=== PATIENT | male | born 1985 | race Caucasian/White ===

== ENCOUNTER 2018-02-15 12:32 | Emergency (ER) | payer OTHER ==
[~2018-02-15] VITALS: Ht 175.3 cm; Wt 87.0 kg
[~2018-02-15 12:32] MED LIST: Z.0.NO CURRENT MEDS
[2018-02-15] MEDS ORDERED: IOHEXOL 350 MG/ML 10 ML VIAL (for RAD DIAG) IVCONTRAST ONE (12:33)
[2018-02-15 12:48] VITALS: BP 129/79; PULSE 92; RESP 16; O2SAT 97
[2018-02-15] MEDS ORDERED: DIVA500T3 PO (12:48)
[2018-02-15] MEDS ORDERED: VENL75TA PO (12:48)
[2018-02-15] MEDS ORDERED: CYCL10TA PO (12:48)
[2018-02-15] MEDS ORDERED: GABA300C5 PO (12:48)
[2018-02-15] MEDS ORDERED: IBUP-232 PO (12:48)
[2018-02-15] MEDS ORDERED: TRAZ50TA12 PO (12:48)
[2018-02-15] MEDS ORDERED: SODIUM CHLOR 0.9% 1000 ML INJ 1,000 ML IV SCH (12:54)
[2018-02-15] MEDS ORDERED: SODIUM CHLORIDE 0.9% FLUSH 10 ML FLUSH IVF PRN (13:00)
[2018-02-15] MEDS ORDERED: MORPHINE SULFATE 4 MG/ML INJ IV PUSH ONE (13:00)
[2018-02-15 13:03] VITALS: RESP 18; O2SAT 97
--- NOTE | 2018-02-15 13:13 | PD ---
HPI Chief Complaint: Fall Time Seen by Provider: 12:43 Travel History International Travel<30 days: No Contact w/Intl Traveler<30days: No Traveled to known affect area: No History of Present Illness HPI Patient is a 32-year-old male presenting to the emergency department for evaluation of left-sided weakness, headache, dizziness after sustaining a mechanical fall on Tuesday. Patient states he felt lightheaded and dizzy Tuesday while he was attempting to descend a staircase, he subsequently fell down 13 steps. He had positive loss of consciousness, when he regained consciousness he got himself up and felt okay so he did not seek medical attention. He states over the last 3 days he has had increasing weakness on his left leg. He also reports a headache, dizziness and nausea. Patient reports that he has chronic back pain, his back pain is consistent with what he has had in the past. He denies any bladder or bowel incontinence, no saddle paresthesia. He currently reports his pain is a 7 out of 10, constant, aching. Patient states he been seeing a neurologist through the [place] for possible seizures. He has not had a formal EEG done, he is still awaiting further testing. He had been on gabapentin for this, he was just changed to Depakote which she has not started taking. He denies any chest pain or shortness of breath prior to the syncopal episode. Patient states his been taking 800 mg ibuprofen for the pain. PFSH Past Medical History Anxiety: Yes Depression: Yes Neurologic: Yes Seizures: Yes Tetanus Vaccination: Unknown Past Surgical History Abdominal Surgery: Yes (kidney) Social History Alcohol Use: No Tobacco Use: Yes Substance Use: No Allergies-Medications (Allergen,Severity, Reaction): Coded Allergies: No Known Allergies (Verified Adverse Reaction, Unknown, 02/15/18) Reported Meds & Prescriptions Reported Meds & Active Scripts Active Reported Effexor (Venlafaxine HCl) 75 Mg Tab 75 Mg PO Q8H Trazodone (Trazodone HCl) 50 Mg Tab 50 Mg PO HS Ibuprofen 600 Mg Tab 600 Mg PO Q8HR PRN Gabapentin 300 Mg Cap 300 Mg PO TID Divalproex ER (Divalproex Sodium) 500 Mg Tab 500 Mg PO DAILY Flexeril (Cyclobenzaprine HCl) 10 Mg Tab 10 Mg PO DAILY No Current Meds (Miscellaneous Medication) Misc Review of Systems Except as stated in HPI: all other systems reviewed are Neg HENT: Positive: Headaches, Lightheadedness Cardiovascular: No: Chest Pain or Discomfort Respiratory: No: Shortness of Breath Gastrointestinal: Positive: Nausea, No: Abdominal Pain Musculoskeletal: Positive: Myalgias Neurologic: Positive: Weakness, Dizziness, Focal Abnormalities, Headache, Sensory Disturbance, No: Change in Mentation, Slurred Speech Physical Exam Narrative GENERAL: Well-developed, well-nourished, alert male. Presenting in no acute distress. SKIN: Warm and dry. Abrasions to forehead and left upper back HEAD: Atraumatic. Normocephalic. EYES: Pupils equal and round. No scleral icterus. No injection or drainage. Extraocular movements are intact ENT: No nasal bleeding or discharge. Mucous membranes pink and moist. NECK: Trachea midline. No JVD. No spinal tenderness or step-off noted. CARDIOVASCULAR: Regular rate and rhythm. RESPIRATORY: No accessory muscle use. Clear to auscultation. Breath sounds equal bilaterally. GASTROINTESTINAL: Abdomen soft, non-tender, nondistended. Hepatic and splenic margins not palpable. MUSCULOSKELETAL: Extremities without clubbing, cyanosis, or edema. No obvious deformities. Spinal tenderness to the upper lumbar region. NEUROLOGICAL: Awake and alert. No obvious cranial nerve deficits. Motor grossly within normal limits. 4/5 muscle strength in the left arms and leg. 5 out of 5 in the right arm and leg. Normal speech. PSYCHIATRIC: Appropriate mood and affect; insight and judgment normal. Data Data Last Documented VS Vital Signs Date Time Temp Pulse Resp B/P (MAP) Pulse Ox O2 Delivery O2 Flow Rate FiO2 02/15/18 14:36 16 02/15/18 14:08 89 98 Room Air 02/15/18 14:07 98.1 121/76 (91) Orders Orders Complete Blood Count With Diff (02/15/18 12:54) Prothrombin Time / Inr (Pt) (02/15/18 12:54) Act Partial Throm Time (Ptt) (02/15/18 12:54) Ct Brain W/O Iv Contrast(Rout) (02/15/18 12:54) Ct Cerv Spine W/O Contrast (02/15/18 12:54) Ct Abd/Pel W Iv Contrast(Rout) (02/15/18 12:54) Ct Thorax/ Chest W Iv Contrast (02/15/18 12:54) Ct Thor Spine W Iv Contrast (02/15/18 12:54) Ct Lumb Spine W Iv Contrast (02/15/18 12:54) Iv Access Insert/Monitor (02/15/18 12:54) Ecg Monitoring (02/15/18 12:54) Oximetry (02/15/18 12:54) Oxygen Administration (02/15/18 12:54) Morphine Inj (Morphine Inj) (02/15/18 13:00) Sodium Chlor 0.9% 1000 Ml Inj (Ns 1000 M (02/15/18 12:54) Sodium Chloride 0.9% Flush (Ns Flush) (02/15/18 13:00) Comprehensive Metabolic Panel (02/15/18 12:54) Creatine Kinase (Cpk) (02/15/18 12:54) Acetaminophen 1000 Mg/100 Ml (Ofirmev 10 (02/15/18 14:00) Iohexol 350 Inj (Omnipaque 350 Inj) (02/15/18 12:33) Urinalysis - C+S If Indicated (02/15/18 15:19) Ibuprofen (Motrin) (02/15/18 16:15) Labs Laboratory Tests Test 02/15/18 13:01 White Blood Count 11.9 TH/MM3 Red Blood Count 6.13 MIL/MM3 Hemoglobin 17.4 GM/DL Hematocrit 51.8 % Mean Corpuscular Volume 84.6 FL Mean Corpuscular Hemoglobin 28.4 PG Mean Corpuscular Hemoglobin Concent 33.6 % Red Cell Distribution Width 14.1 % Platelet Count 263 TH/MM3 Mean Platelet Volume 7.9 FL Neutrophils (%) (Auto) 62.5 % Lymphocytes (%) (Auto) 25.5 % Monocytes (%) (Auto) 10.7 % Eosinophils (%) (Auto) 0.9 % Basophils (%) (Auto) 0.4 % Neutrophils # (Auto) 7.4 TH/MM3 Lymphocytes # (Auto) 3.0 TH/MM3 Monocytes # (Auto) 1.3 TH/MM3 Eosinophils # (Auto) 0.1 TH/MM3 Basophils # (Auto) 0.0 TH/MM3 CBC Comment DIFF FINAL Differential Comment Prothrombin Time 11.3 SEC Prothromb Time International Ratio 1.1 RATIO Activated Partial Thromboplast Time 32.5 SEC Blood Urea Nitrogen 11 MG/DL Creatinine 1.03 MG/DL Random Glucose 79 MG/DL Total Protein 7.9 GM/DL Albumin 3.9 GM/DL Calcium Level 9.2 MG/DL Alkaline Phosphatase 80 U/L Aspartate Amino Transf (AST/SGOT) 18 U/L Alanine Aminotransferase (ALT/SGPT) 27 U/L Total Bilirubin 0.3 MG/DL Sodium Level 138 MEQ/L Potassium Level 4.3 MEQ/L Chloride Level 102 MEQ/L Carbon Dioxide Level 28.5 MEQ/L Anion Gap 8 MEQ/L Estimat Glomerular Filtration Rate 85 ML/MIN Total Creatine Kinase 182 U/L [facility] Medical Decision Making Medical Screen Exam Complete: Yes Emergency Medical Condition: Yes Interpretation(s) Last Impressions Thoracic Spine CT 02/15/18 1254 Signed Impressions: CONCLUSION: Essentially unremarkable study. Lumbar Spine CT 02/15/18 1254 Signed Impressions: CONCLUSION: Slight asymmetrical bulging disc left L5-S1 with mild abutting of the exiting nerve roots. Head CT 02/15/18 1254 Signed Impressions: CONCLUSION: No acute intracranial abnormality is identified. Chest CT 02/15/18 1254 Signed Impressions: CONCLUSION: Unremarkable study except for slight atelectasis and/or infiltrate within lingula. Cervical Spine CT 02/15/18 1254 Signed Impressions: CONCLUSION: No acute bony injury in the cervical spine. Abdomen/Pelvis CT 02/15/18 1254 Signed Impressions: CONCLUSION: Slight hydronephrosis and right kidney with prominence of the right renal pelvis may be chronic partial UPJ obstruction and otherwise unremarkable . Laboratory Tests Test 02/15/18 13:01 White Blood Count 11.9 TH/MM3 Red Blood Count 6.13 MIL/MM3 Hemoglobin 17.4 GM/DL Hematocrit 51.8 % Mean Corpuscular Volume 84.6 FL Mean Corpuscular Hemoglobin 28.4 PG Mean Corpuscular Hemoglobin Concent 33.6 % Red Cell Distribution Width 14.1 % Platelet Count 263 TH/MM3 Mean Platelet Volume 7.9 FL Neutrophils (%) (Auto) 62.5 % Lymphocytes (%) (Auto) 25.5 % Monocytes (%) (Auto) 10.7 % Eosinophils (%) (Auto) 0.9 % Basophils (%) (Auto) 0.4 % Neutrophils # (Auto) 7.4 TH/MM3 Lymphocytes # (Auto) 3.0 TH/MM3 Monocytes # (Auto) 1.3 TH/MM3 Eosinophils # (Auto) 0.1 TH/MM3 Basophils # (Auto) 0.0 TH/MM3 CBC Comment DIFF FINAL Differential Comment Prothrombin Time 11.3 SEC Prothromb Time International Ratio 1.1 RATIO Activated Partial Thromboplast Time 32.5 SEC Blood Urea Nitrogen 11 MG/DL Creatinine 1.03 MG/DL Random Glucose 79 MG/DL Total Protein 7.9 GM/DL Albumin 3.9 GM/DL Calcium Level 9.2 MG/DL Alkaline Phosphatase 80 U/L Aspartate Amino Transf (AST/SGOT) 18 U/L Alanine Aminotransferase (ALT/SGPT) 27 U/L Total Bilirubin 0.3 MG/DL Sodium Level 138 MEQ/L Potassium Level 4.3 MEQ/L Chloride Level 102 MEQ/L Carbon Dioxide Level 28.5 MEQ/L Anion Gap 8 MEQ/L Estimat Glomerular Filtration Rate 85 ML/MIN Total Creatine Kinase 182 U/L Vital Signs Date Time Temp Pulse Resp B/P (MAP) Pulse Ox O2 Delivery O2 Flow Rate FiO2 02/15/18 13:03 18 97 Room Air 02/15/18 12:48 92 16 129/79 (96) 97 Room Air Differential Diagnosis Fracture versus contusion versus hemorrhage versus cardiac arrhythmia versus seizure versus other Narrative Course Patient is a 32-year-old male presenting to the emergency department for evaluation after a fall likely secondary to a syncopal episode on Tuesday. On exam patient has left sided weakness. Patient's vital signs are stable, labs and imaging ordered and pending. Labs reviewed, CBC and chemistry with no acute findings. Patient was given morphine for pain initially, this alleviated his pain, he then complained of a headache, IV acetaminophen has been ordered. CT scan the abdomen and pelvis shows slight hydronephrosis and right [place] kidney with prominence of the right renal pelvis may be chronic partial UPJ obstruction patient has normal BUN and creatinine. CT scan of the cervical spine shows no acute abnormality. CT of the chest is unremarkable except for slight atelectasis and/or infiltrate within the lingula. Head CT shows no acute intracranial abnormality. CT scan the lumbar spine shows slight asymmetrical bulging disc left L5-S1 with mild abutting of the exiting nerve roots. CT scan of the thoracic spine is essentially unremarkable. The bulging disc could be causing the paresthesia to the left lower extremity. Patient's gait was assessed, gait is steady, he is not dragging his foot. Findings discussed with my attending physician as well as plan of care. Patient will be discharged home. He [place] to follow[place]up with [place]. Patient continued to complain of a dull headache. He was given ibuprofen. Patient was advised to return to emergency department immediately for any new or worsening symptoms. He was advised to continue gentle range of motion exercises, avoid bed rest and avoid exacerbating activities. Patient verbalized understanding these instructions. Patient stable for discharge. Diagnosis Primary Impression: Fall Qualified Codes: W19.XXXA - Unspecified fall, initial encounter Additional Impressions: Disc disorder of lumbosacral region Concussion Qualified Codes: S06.0X9A - Concussion with loss of consciousness of unspecified duration, initial encounter Referrals: Neurologist 3 days Primary Care Physician 3 days Patient Instructions: Concussion (ED), General Instructions, Lumbar Disc Herniation (ED) Additional Instructions: Follow-up with the [place] clinic and your neurologist Continue home medications as previously prescribed Take medications as directed for pain Avoid bed rest, avoid exacerbating activities, continue gentle range of motion exercises Return to emergency department for any new or worsening symptoms Med/Other Pt SpecificInfo: Prescription(s) given Scripts Ondansetron Odt (Zofran Odt) 4 Mg Tab 4 MG SL Q6HR Y for Nausea/Vomiting, #10 TAB 0 Refills Prov: Nancy Espinoza 02/15/18 Prednisone (Prednisone) 50 Mg Tab 50 MG PO DAILY for 5 Days, #5 TAB 0 Refills Prov: Nancy Espinoza 02/15/18 Ketorolac (Ketorolac) 10 Mg Tab 10 MG PO TID Y for Pain Management, #30 TAB 0 Refills Prov: Nancy Espinoza 02/15/18 Disposition: 01 DISCHARGE HOME Condition: Stable Nancy Espinoza Feb 15, 2018 13:13
[2018-02-15 13:17] LABS: AUTOMATED NEUTROPHIL # 7.4 TH/MM3 (1.8-7.7); BASOPHIL % 0.4 % (0.0-2.0); EOSINOPHIL # 0.1 TH/MM3 (0-0.4); EOSINOPHIL % 0.9 % (0.0-4.0); HEMATOCRIT 51.8 % (39.0-51.0); HEMOGLOBIN 17.4 GM/DL (13.0-17.0); LYMPH % 25.5 % (9.0-44.0); MEAN CELL VOLUME 84.6 FL (80.0-100.0); MEAN CORPUSCULAR HEMOGLOBIN 28.4 PG (27.0-34.0); MEAN CORPUSCULAR HGB CONC 33.6 % (32.0-36.0); MEAN PLATELET VOLUME 7.9 FL (7.0-11.0); MONO % 10.7 % (0.0-8.0); MONOCYTE # 1.3 TH/MM3 (0-0.9); NEUT % 62.5 % (16.0-70.0); PLATELET COUNT 263 TH/MM3 (150-450); RED BLOOD COUNT 6.13 MIL/MM3 (4.50-5.90); RED CELL DISTRIBUTION WIDTH 14.1 % (11.6-17.2); WHITE BLOOD COUNT 11.9 TH/MM3 (4.0-11.0)
[2018-02-15 13:28] LABS: INTERNATIONAL NORMALIZED RATIO 1.1 RATIO; PROTHROMBIN TIME - PATIENT 11.3 SEC (9.8-11.6)
[2018-02-15 13:43] LABS: ALBUMIN 3.9 GM/DL (3.4-5.0); ALT (GPT) 27 U/L (12-78); AST (GOT) 18 U/L (15-37); BICARBONATE 28.5 MEQ/L (21.0-32.0); BLOOD UREA NITROGEN 11 MG/DL (7-18); CALCIUM 9.2 MG/DL (8.5-10.1); CHLORIDE 102 MEQ/L (98-107); CREATININE 1.03 MG/DL (0.60-1.30); GLOMERULAR FILTRATION RATE 85 ML/MIN (>89); GLUCOSE,RANDOM 79 MG/DL (74-106); SODIUM (NA) 138 MEQ/L (136-145)
[2018-02-15 13:45] LABS: ALKALINE PHOSPHATASE 80 U/L (45-117); TOTAL BILIRUBIN ADULT 0.3 MG/DL (0.2-1.0); TOTAL PROTEIN 7.9 GM/DL (6.4-8.2)
[2018-02-15] MEDS ORDERED: ACETAMINOPHEN 1000 MG/100 ML 100 ML IV ONE (14:00)
[2018-02-15 14:07] VITALS: BP 121/76; PULSE 86; RESP 16; TEMP 97.8; TEMP 98.1; O2SAT 98
[2018-02-15 14:36] VITALS: RESP 16
--- NOTE | 2018-02-15 14:40 | RADRPT ---
EXAM DATE: 02/15/2018 2:30 PM EDT AGE/SEX: 32 years / Male INDICATIONS: Fall down stairs three days ago; headache, dizziness, nausea. CLINICAL DATA: This is the patient's initial encounter. Patient reports that signs and symptoms have been present for 3 days and indicates a pain score of 4/10. MEDICAL/SURGICAL HISTORY: . Seizures. None. RADIATION DOSE: 56.35 CTDI (mGy) COMPARISON: No prior [place] exams available for comparison. TECHNIQUE: CT of the head without contrast. Using automated exposure control and adjustment of the mA and/or kV according to patient size, radiation dose was kept as low as reasonably achievable to ob tain optimal diagnostic quality images. FINDINGS: Cerebrum: The ventricles are normal. No midline shift, mass lesion, hemorrhage or acute infarction. No extraaxial fluid collections are seen. Posterior Fossa: The cerebellum and brainstem demonstrate no acute abnormality. The 4th ventricle is midline. The cerebellopontine angle is within normal limits. Extracranial: There is mucoperiosteal thickening versus mucous retention cyst in the right maxillary sinus. The remaining sinuses are clear. Skull: The calvaria is intact. No skull fracture. CONCLUSION: No acute intracranial abnormality is identified. Electronically signed by: Skyler Conde MD 02/15/2018 2:39 PM EDT
--- NOTE | 2018-02-15 14:55 | RADRPT ---
EXAM DATE: 02/15/2018 2:42 PM EDT AGE/SEX: 32 years / Male INDICATIONS: Fall down stairs three days ago. Neck pain, dizziness. CLINICAL DATA: This is the patient's initial encounter. Patient reports that signs and symptoms have been present for 3 days and indicates a pain score of 4/10. MEDICAL/SURGICAL HISTORY: . Seizures. None. RADIATION DOSE: 22.55 CTDI (mGy) COMPARISON: No prior [place] exams available for comparison. TECHNIQUE: Contiguous axial images were obtained using helical multirow detector technique. The vol umetric data was post-processed with multiplanar reconstruction in oblique axial, sagittal, and coron al planes. Using automated exposure control and adjustment of the mA and/or kV according to patient s ize, radiation dose was kept as low as reasonably achievable to obtain optimal diagnostic quality samira ges. FINDINGS: Spinal alignment is satisfactory. There is no evidence of fracture. No bony canal or janneth inal stenosis is identified. There is no evidence of paraspinal hematoma. CONCLUSION: No acute bony injury in the cervical spine. Electronically signed by: Skyler Molina MD 02/15/2018 2:53 PM EDT
--- NOTE | 2018-02-15 15:06 | RADRPT ---
EXAM DATE: 02/15/2018 2:55 PM EDT AGE/SEX: 32 years / Male INDICATIONS: Trauma; fell down stairs. CLINICAL DATA: This is the patient's initial encounter. Patient reports that signs and symptoms have been present for 3 days and indicates a pain score of 5/10. MEDICAL/SURGICAL HISTORY: . Seizures. . Right kidney surgery. RADIATION DOSE: 12.13 CTDI (mGy) ; Combined studies COMPARISON: No prior [place] exams available for comparison. TECHNIQUE: Multiple contiguous axial images were obtained through the chest during bolus infusion of 72 ml Omnipaque 350 (iohexol) nonionic water-soluble contrast as a cumulative dose for multiple exa ms. Images were obtained in suspended respiration using multiple row detector helical technique. U sing automated exposure control and adjustment of the mA and/or kV according to patient size, radiati on dose was kept as low as reasonably achievable to obtain optimal diagnostic quality images. FINDINGS: The lungs are clear without infiltrate, nodule, or mass. There is no pleural effusion. No appreciab le pathological adenopathy is seen within the mediastinum. There is slight infiltrate or atelectasis within lingula. CONCLUSION: Unremarkable study except for slight atelectasis and/or infiltrate within lingula. Electronically signed by: Valentin Nickerson MD 02/15/2018 3:04 PM EDT
--- NOTE | 2018-02-15 15:11 | RADRPT ---
EXAM DATE: 02/15/2018 2:56 PM EDT AGE/SEX: 32 years / Male INDICATIONS: Trauma; fell down stairs. CLINICAL DATA: This is the patient's initial encounter. Patient reports that signs and symptoms have been present for 3 days and indicates a pain score of 5/10. MEDICAL/SURGICAL HISTORY: . Seizures . Right kidney surgery. ORAL CONTRAST: No oral contrast ingested. RADIATION DOSE: 12.13 CTDI (mGy) ; Combined studies COMPARISON: No prior [place] exams available for comparison. TECHNIQUE: Multiple contiguous axial images were obtained through the abdomen and pelvis following b olus infusion of 72 ml Omnipaque 350 (iohexol) nonionic water-soluble contrast as a cumulative dose for multiple exams. No oral contrast ingested. Using automated exposure control and adjustment of t he mA and/or kV according to patient size, the radiation dose was kept as low as reasonably achievabl e to obtain optimal diagnostic quality images. FINDINGS: Abdomen CT: The liver, spleen, pancreas, left kidney, adrenals are unremarkable. There is slight hydronephrosis i n the right kidney may be due to a chronic partial UPJ obstruction. There is no evidence for any appr eciable pathological adenopathy, free fluid, or bowel obstruction. Small splenic splenule is seen. Pelvic CT: There is no evidence for mass, abscess formation, or any significant adenopathy within the pelvis. T here are no fractures. CONCLUSION: Slight hydronephrosis and right kidney with prominence of the right renal pelvis may be c hronic partial UPJ obstruction and otherwise unremarkable. Electronically signed by: Valentin Nickerson MD 02/15/2018 3:10 PM EDT
--- NOTE | 2018-02-15 15:20 | RADRPT ---
EXAM DATE: 02/15/2018 3:09 PM EDT AGE/SEX: 32 years / Male INDICATIONS: Trauma; fell down stairs. CLINICAL DATA: This is the patient's initial encounter. Patient reports that signs and symptoms have been present for 3 days and indicates a pain score of 5/10. MEDICAL/SURGICAL HISTORY: . Seizures. . Right kidney surgery. RADIATION DOSE: . CTDI (mGy) ; Reconstructed from previous dataset, no dose COMPARISON: [facility] [place], CT ABDOMEN & PELVIS W CONTRAST, 02/15/2018. . TECHNIQUE: Contiguous axial images were acquired with a multirow detector CT scanner after intraveno us administration of 72 ml Omnipaque 350 (iohexol) nonionic water-soluble contrast as a cumulative d ose for multiple exams. Multiplanar reconstructions in the sagittal and coronal plane were also perf ormed. Using automated exposure control and adjustment of the mA and/or kV according to patient size, radiation dose was kept as low as reasonably achievable to obtain optimal diagnostic quality images. FINDINGS: No significant compression deformities, spondylolysis, or spondylolesthesis is seen. Slight hydronephrosis in the right kidney and prominent right renal pelvis is present discussed on the danae ent's CT abdomen and pelvis. L1-L2: No appreciable compromise to the thecal sac, or the exiting nerve roots is seen. The neural foramina and lateral recesses are patent bilaterally. L2-L3: No appreciable compromise to the thecal sac, or the exiting nerve roots is seen. The neural foramina and lateral recesses are patent bilaterally. L3-L4: No appreciable compromise to the thecal sac, or the exiting nerve roots is seen. The neural foramina and lateral recesses are patent bilaterally. L4-L5: No appreciable compromise to the thecal sac, or the exiting nerve roots is seen. The neural foramina and lateral recesses are patent bilaterally. L5-S1: Slight left-sided asymmetrical bulging discs is seen with slight abutting of the exiting nerv e roots. No significant thecal sac stenosis is seen. CONCLUSION: Slight asymmetrical bulging disc left L5-S1 with mild abutting of the exiting nerve luis ts. Electronically signed by: Valentin Nickerson MD 02/15/2018 3:19 PM EDT
--- NOTE | 2018-02-15 15:24 | RADRPT ---
EXAM DATE: 02/15/2018 3:16 PM EDT AGE/SEX: 32 years / Male INDICATIONS: Trauma; fell down stairs. CLINICAL DATA: This is the patient's initial encounter. Patient reports that signs and symptoms have been present for 3 days and indicates a pain score of 6/10. MEDICAL/SURGICAL HISTORY: . Seizures. . Right kidney surgery. RADIATION DOSE: . CTDI (mGy) ; Reconstructed from previous dataset, no dose COMPARISON: [facility] [place], CT ABDOMEN & PELVIS W CONTRAST, 02/15/2018. . TECHNIQUE: Contiguous axial images were acquired using a multirow detector CT scanner after intraven ous administration of 72 ml Omnipaque 350 (iohexol) nonionic water-soluble contrast as a cumulative dose for multiple exams. Multiplanar reconstruction in the sagittal and coronal planes was performe d. Using automated exposure control and adjustment of the mA and/or kV according to patient size, ra diation dose was kept as low as reasonably achievable to obtain optimal diagnostic quality images. FINDINGS: No significant compression deformities are seen. Discs spaces are grossly intact and not significant ly narrowed. There is slight hydronephrosis and right kidney and prominence right renal pelvis discu ssed on the patient's CT abdomen and pelvis. T1-T2: No appreciable compromise to the thecal sac, spinal cord, or the exiting nerve roots are seen . The neural foramina are grossly patent bilaterally. T2-T3: No appreciable compromise to the thecal sac, spinal cord, or the exiting nerve roots are seen . The neural foramina are grossly patent bilaterally. T3-T4: No appreciable compromise to the thecal sac, spinal cord, or the exiting nerve roots are seen . The neural foramina are grossly patent bilaterally. T4-T5: No appreciable compromise to the thecal sac, spinal cord, or the exiting nerve roots are seen . The neural foramina are grossly patent bilaterally. T5-T6: No appreciable compromise to the thecal sac, spinal cord, or the exiting nerve roots are seen . The neural foramina are grossly patent bilaterally. T6-T7: No appreciable compromise to the thecal sac, spinal cord, or the exiting nerve roots are seen . The neural foramina are grossly patent bilaterally. T7-T8: No appreciable compromise to the thecal sac, spinal cord, or the exiting nerve roots are seen . The neural foramina are grossly patent bilaterally. T8-T9: No appreciable compromise to the thecal sac, spinal cord, or the exiting nerve roots are seen . The neural foramina are grossly patent bilaterally. T9-T10: No appreciable compromise to the thecal sac, spinal cord, or the exiting nerve roots are see n. The neural foramina are grossly patent bilaterally. T10-T11: No appreciable compromise to the thecal sac, spinal cord, or the exiting nerve roots are se en. The neural foramina are grossly patent bilaterally. T11-T12: No appreciable compromise to the thecal sac, spinal cord, or the exiting nerve roots are se en. The neural foramina are grossly patent bilaterally. T12-L1: No appreciable compromise to the thecal sac, spinal cord, or the exiting nerve roots are see n. The neural foramina are grossly patent bilaterally. CONCLUSION: Essentially unremarkable study. Electronically signed by: Valentin Nickerson MD 02/15/2018 3:23 PM EDT
[2018-02-15] MEDS ORDERED: IBUPROFEN 800 MG TAB PO ONE (16:15)
[2018-02-15] MEDS ORDERED: KETO10 PO (16:30)
[2018-02-15] MEDS ORDERED: ZOFR4TAB3 SL (16:30)
[2018-02-15] MEDS ORDERED: PRED50 PO (16:30)
[2018-02-15 16:40] VITALS: BP 122/78; TEMP 98
--- NOTE | 2018-02-15 19:45 | PD ---
Physical Exam Date Seen by Provider: Feb 15, 2018 Time Seen by Provider: 14:00 Narrative I, Dr. Lew, have reviewed the advance practice practitioner's documentation and am in agreement, met with the patient face to face, made the diagnosis, and the medical decision making was done by me. *My assessment and Findings: Patient seen and evaluated with PA, please see PA notes for further details. Complaining of back pain, leg weakness due to the back pain after a fall. He feels like his legs giving out. He denies any fevers, incontinence, has no saddle anesthesia on evaluation. There is some subtle weakness there on evaluation of the left leg. Laboratory Tests Test 02/15/18 13:01 White Blood Count 11.9 TH/MM3 (4.0-11.0) Red Blood Count 6.13 MIL/MM3 (4.50-5.90) Hemoglobin 17.4 GM/DL (13.0-17.0) Hematocrit 51.8 % (39.0-51.0) Monocytes (%) (Auto) 10.7 % (0.0-8.0) Monocytes # (Auto) 1.3 TH/MM3 (0-0.9) Activated Partial Thromboplast Time 32.5 SEC (24.3-30.1) Estimat Glomerular Filtration Rate 85 ML/MIN (>89) Last 24 hours Impressions Thoracic Spine CT 02/15/18 1254 Signed Impressions: CONCLUSION: Essentially unremarkable study. Lumbar Spine CT 02/15/18 1254 Signed Impressions: CONCLUSION: Slight asymmetrical bulging disc left L5-S1 with mild abutting of the exiting nerve roots. Head CT 02/15/18 125 Signed Impressions: CONCLUSION: No acute intracranial abnormality is identified. Chest CT 02/15/18 1254 Signed Impressions: CONCLUSION: Unremarkable study except for slight atelectasis and/or infiltrate within lingula. Cervical Spine CT 02/15/18 1254 Signed Impressions: CONCLUSION: No acute bony injury in the cervical spine. Abdomen/Pelvis CT 02/15/181253 Signed Impressions: CONCLUSION: Slight hydronephrosis and right kidney with prominence of the right renal pelvis may be chronic partial UPJ obstruction and otherwise unremarkable . CAT scans were done for further evaluation and shows a L5-S1 bulging disc, likely causing some radiculopathy symptoms. 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 Plan to release with symptomatic relief or pain and follow-up to primary care doctor. Return for worsening in symptoms as necessary. The plan has been discussed with the patient and he states understanding. Data Data Last Documented VS Vital Signs Date Time Temp Pulse Resp B/P (MAP) Pulse Ox O2 Delivery O2 Flow Rate FiO2 02/15/18 16:40 98.0 78 16 122/78 (93) 98 02/15/18 14:08 Room Air Orders Orders Complete Blood Count With Diff (02/15/18 12:54) Prothrombin Time / Inr (Pt) (02/15/18 12:54) Act Partial Throm Time (Ptt) (02/15/18 12:54) Ct Brain W/O Iv Contrast(Rout) (02/15/18 12:54) Ct Cerv Spine W/O Contrast (02/15/18 12:54) Ct Abd/Pel W Iv Contrast(Rout) (02/15/18 12:54) Ct Thorax/ Chest W Iv Contrast (02/15/18 12:54) Ct Thor Spine W Iv Contrast (02/15/18 12:54) Ct Lumb Spine W Iv Contrast (02/15/18 12:54) Iv Access Insert/Monitor (02/15/18 12:54) Ecg Monitoring (02/15/18 12:54) Oximetry (02/15/18 12:54) Oxygen Administration (02/15/18 12:54) Morphine Inj (Morphine Inj) (02/15/18 13:00) Sodium Chlor 0.9% 1000 Ml Inj (Ns 1000 M (02/15/18 12:54) Sodium Chloride 0.9% Flush (Ns Flush) (02/15/18 13:00) Comprehensive Metabolic Panel (02/15/18 12:54) Creatine Kinase (Cpk) (02/15/18 12:54) Acetaminophen 1000 Mg/100 Ml (Ofirmev 10 (02/15/18 14:00) Iohexol 350 Inj (Omnipaque 350 Inj) (02/15/18 12:33) Urinalysis - C+S If Indicated (02/15/18 15:19) Ibuprofen (Motrin) (02/15/18 16:15) Ed Discharge Order (02/15/18 16:36) Labs Laboratory Tests Test 02/15/18 13:01 White Blood Count 11.9 TH/MM3 Red Blood Count 6.13 MIL/MM3 Hemoglobin 17.4 GM/DL Hematocrit 51.8 % Mean Corpuscular Volume 84.6 FL Mean Corpuscular Hemoglobin 28.4 PG Mean Corpuscular Hemoglobin Concent 33.6 % Red Cell Distribution Width 14.1 % Platelet Count 263 TH/MM3 Mean Platelet Volume 7.9 FL Neutrophils (%) (Auto) 62.5 % Lymphocytes (%) (Auto) 25.5 % Monocytes (%) (Auto) 10.7 % Eosinophils (%) (Auto) 0.9 % Basophils (%) (Auto) 0.4 % Neutrophils # (Auto) 7.4 TH/MM3 Lymphocytes # (Auto) 3.0 TH/MM3 Monocytes # (Auto) 1.3 TH/MM3 Eosinophils # (Auto) 0.1 TH/MM3 Basophils # (Auto) 0.0 TH/MM3 CBC Comment DIFF FINAL Differential Comment Prothrombin Time 11.3 SEC Prothromb Time International Ratio 1.1 RATIO Activated Partial Thromboplast Time 32.5 SEC Blood Urea Nitrogen 11 MG/DL Creatinine 1.03 MG/DL Random Glucose 79 MG/DL Total Protein 7.9 GM/DL Albumin 3.9 GM/DL Calcium Level 9.2 MG/DL Alkaline Phosphatase 80 U/L Aspartate Amino Transf (AST/SGOT) 18 U/L Alanine Aminotransferase (ALT/SGPT) 27 U/L Total Bilirubin 0.3 MG/DL Sodium Level 138 MEQ/L Potassium Level 4.3 MEQ/L Chloride Level 102 MEQ/L Carbon Dioxide Level 28.5 MEQ/L Anion Gap 8 MEQ/L Estimat Glomerular Filtration Rate 85 ML/MIN Total Creatine Kinase 182 U/L [facility] Medical Record Reviewed: Yes Supervised Visit with MITA: Yes Diagnosis Primary Impression: Fall Additional Impressions: Disc disorder of lumbosacral region Concussion Referrals: Neurologist 3 days Primary Care Physician 3 days Patient Instructions: General Instructions, Lumbar Disc Herniation (ED), Concussion (ED) Departure Forms: Tests/Procedures Additional Instruction: Follow-up with the PA clinic and your neurologist Continue home medications as previously prescribed Take medications as directed for pain Avoid bed rest, avoid exacerbating activities, continue gentle range of motion exercises Return to emergency department for any new or worsening symptoms Scripts Ondansetron Odt (Zofran Odt) 4 Mg Tab 4 MG SL Q6HR Y for Nausea/Vomiting, #10 TAB 0 Refills Prov: Nancy Espinoza 02/15/18 Prednisone (Prednisone) 50 Mg Tab 50 MG PO DAILY for 5 Days, #5 TAB 0 Refills Prov: Nancy Espinoza 02/15/18 Ketorolac (Ketorolac) 10 Mg Tab 10 MG PO TID Y for Pain Management, #30 TAB 0 Refills Prov: Nancy Espinoza 02/15/18 Disposition: 01 DISCHARGE HOME Condition: Stable Kayley Lew MD Feb 15, 2018 19:45
== END 2018-02-15 16:40 | disposition home or self-care (01) ==
LOC: NEPC 12:32
DX: M51.9 Unspecified thoracic, thoracolumbar and lumbosacral intervertebral disc disorder (principal); S06.0X9A Concussion with loss of consciousness of unspecified duration, initial encounter; N13.30 Unspecified hydronephrosis; W10.9XXA Fall (on) (from) unspecified stairs and steps, initial encounter; F32.9 Major depressive disorder, single episode, unspecified; F41.9 Anxiety disorder, unspecified; Z72.0 Tobacco use; Z79.899 Other long term (current) drug therapy
CPT/HCPCS: 70450; 71260; 72125; 72129; 72132; 74177; 80053; 82550; 85025; 85610; 85730; 96361; 96365; 96375; 99285; J0131; J2270; J7030; Q9967

== ENCOUNTER 2018-03-06 09:57 | Emergency (ER) | payer OTHER ==
[~2018-03-06] VITALS: Ht 175.3 cm; Wt 85.0 kg
[~2018-03-06 09:57] MED LIST changes: +CYCL10TA PO; +DIVA500T3 PO; +GABA300C5 PO; +IBUP-232 PO; +KETO10 PO; +PRED50 PO; +TRAZ50TA12 PO; +VENL75TA PO; +ZOFR4TAB3 SL
[2018-03-06 10:06] VITALS: BP 145/78; PULSE 115; RESP 16; TEMP 98.7; O2SAT 97
[2018-03-06] MEDS ORDERED: SODIUM CHLORIDE 0.9% FLUSH 10 ML FLUSH IVF PRN (10:30)
[2018-03-06 10:58] LABS: AUTOMATED NEUTROPHIL # 8.1 TH/MM3 (1.8-7.7); BASOPHIL % 0.2 % (0.0-2.0); EOSINOPHIL # 0.1 TH/MM3 (0-0.4); EOSINOPHIL % 1.1 % (0.0-4.0); HEMATOCRIT 50.8 % (39.0-51.0); HEMOGLOBIN 17.2 GM/DL (13.0-17.0); LYMPHOCYTE # 3.8 TH/MM3 (1.0-4.8); MEAN CELL VOLUME 85.2 FL (80.0-100.0); MEAN CORPUSCULAR HEMOGLOBIN 28.8 PG (27.0-34.0); MEAN CORPUSCULAR HGB CONC 33.8 % (32.0-36.0); MEAN PLATELET VOLUME 8.5 FL (7.0-11.0); MONO % 10.5 % (0.0-8.0); MONOCYTE # 1.4 TH/MM3 (0-0.9); NEUT % 60.2 % (16.0-70.0); PLATELET COUNT 229 TH/MM3 (150-450); RED BLOOD COUNT 5.96 MIL/MM3 (4.50-5.90); RED CELL DISTRIBUTION WIDTH 14.3 % (11.6-17.2); WHITE BLOOD COUNT 13.5 TH/MM3 (4.0-11.0)
[2018-03-06 11:04] LABS: INTERNATIONAL NORMALIZED RATIO 1.1 RATIO; PROTHROMBIN TIME - PATIENT 11.1 SEC (9.8-11.6)
[2018-03-06 11:10] VITALS: O2SAT 100
[2018-03-06 11:15] LABS: BICARBONATE 21.1 MEQ/L (21.0-32.0); CALCIUM 9.3 MG/DL (8.5-10.1); CREATININE 1.02 MG/DL (0.60-1.30)
--- NOTE | 2018-03-06 11:53 | PD ---
HPI Chief Complaint: Neuro Symptoms/ Deficits Time Seen by Provider: 10:18 Travel History International Travel<30 days: No Contact w/Intl Traveler<30days: No Traveled to known affect area: No History of Present Illness HPI Patient is a 32 year old male who presents to the ER with complaints of short term memory loss. Patient reports that one month ago, he fell down 20 stairs, reports at that time, he had loss of consciousness. Patient reports that he was seen at emergency room a few days later and had a CT of his head and was told he had a bad concussion. Patient reports that since his fall one month ago , he has had short-term memory loss. Patient reports that he does have a scheduled neurology appointment on Tuesday, he went to the [place] for checkup and he was told to go directly to the emergency room for evaluation. Patient denies any headache or dizziness, reports that he is anxious as he has a short-term memory loss. Patient understands that he is a bad concussion, patient wants help overcoming this "bad concussion. Denies any fall or trauma to the head. PFSH Past Medical History Anxiety: Yes Depression: Yes Neurologic: Yes (patient states he fell down a flight of cement stairs on ) Seizures: Yes Past Surgical History Abdominal Surgery: Yes (kidney) Social History Alcohol Use: No Tobacco Use: Yes (one pack per day) Substance Use: No Allergies-Medications (Allergen,Severity, Reaction): Coded Allergies: No Known Allergies (Verified Adverse Reaction, Unknown, 02/15/18) Reported Meds & Prescriptions Reported Meds & Active Scripts Active Zofran Odt (Ondansetron Odt) 4 Mg Tab 4 Mg SL Q6HR PRN Prednisone 50 Mg Tab 50 Mg PO DAILY 5 Days Ketorolac (Ketorolac Tromethamine) 10 Mg Tab 10 Mg PO TID PRN Reported Effexor (Venlafaxine HCl) 75 Mg Tab 75 Mg PO Q8H Trazodone (Trazodone HCl) 50 Mg Tab 50 Mg PO HS Ibuprofen 600 Mg Tab 600 Mg PO Q8HR PRN Gabapentin 300 Mg Cap 300 Mg PO TID Divalproex ER (Divalproex Sodium) 500 Mg Tab 500 Mg PO DAILY Flexeril (Cyclobenzaprine HCl) 10 Mg Tab 10 Mg PO DAILY No Current Meds (Miscellaneous Medication) Misc Review of Systems General / Constitutional: No: Fever Eyes: No: Visual changes HENT: No: Headaches Cardiovascular: No: Chest Pain or Discomfort Respiratory: No: Shortness of Breath Gastrointestinal: No: Abdominal Pain Genitourinary: No: Dysuria Musculoskeletal: No: Pain Skin: No Rash Neurologic: Positive: Other (Short-term memory loss), No: Weakness Psychiatric: No: Depression Endocrine: No: Polydipsia Hematologic/Lymphatic: No: Easy Bruising Physical Exam Narrative GENERAL: Mild distress SKIN: Focused skin assessment warm/dry. HEAD: Atraumatic. Normocephalic. EYES: Pupils equal and round. No scleral icterus. No injection or drainage. ENT: No nasal bleeding or discharge. Mucous membranes pink and moist. NECK: Trachea midline. No JVD. CARDIOVASCULAR: Regular rate and rhythm. No murmur appreciated. RESPIRATORY: No accessory muscle use. Clear to auscultation. Breath sounds equal bilaterally. GASTROINTESTINAL: Abdomen soft, non-tender, nondistended. Hepatic and splenic margins not palpable. MUSCULOSKELETAL: No obvious deformities. No clubbing. No cyanosis. No edema. NEUROLOGICAL: Awake and alert. No obvious cranial nerve deficits. Motor grossly within normal limits. Normal speech. CN 2- 12 grossly intact with no neurovascular compromise PSYCHIATRIC: Appropriate mood and affect; insight and judgment normal. Data Data Last Documented VS Vital Signs Date Time Temp Pulse Resp B/P (MAP) Pulse Ox O2 Delivery O2 Flow Rate FiO2 03/06/18 11:10 100 03/06/18 10:06 98.7 115 16 145/78 (100) Orders Orders Complete Blood Count With Diff (03/06/18 10:27) Basic Metabolic Panel (Bmp) (03/06/18 10:27) Prothrombin Time / Inr (Pt) (03/06/18 10:27) Act Partial Throm Time (Ptt) (03/06/18 10:27) Ct Brain W/O Iv Contrast(Rout) (03/06/18 10:27) Ecg Monitoring (03/06/18 10:27) Iv Access Insert/Monitor (03/06/18 10:27) Oximetry (03/06/18 10:27) Sodium Chloride 0.9% Flush (Ns Flush) (03/06/18 10:30) Sodium Chlor 0.9% 1000 Ml Inj (Ns 1000 M (03/06/18 12:00) Labs Laboratory Tests Test 03/06/18 10:40 White Blood Count 13.5 TH/MM3 Red Blood Count 5.96 MIL/MM3 Hemoglobin 17.2 GM/DL Hematocrit 50.8 % Mean Corpuscular Volume 85.2 FL Mean Corpuscular Hemoglobin 28.8 PG Mean Corpuscular Hemoglobin Concent 33.8 % Red Cell Distribution Width 14.3 % Platelet Count 229 TH/MM3 Mean Platelet Volume 8.5 FL Neutrophils (%) (Auto) 60.2 % Lymphocytes (%) (Auto) 28.0 % Monocytes (%) (Auto) 10.5 % Eosinophils (%) (Auto) 1.1 % Basophils (%) (Auto) 0.2 % Neutrophils # (Auto) 8.1 TH/MM3 Lymphocytes # (Auto) 3.8 TH/MM3 Monocytes # (Auto) 1.4 TH/MM3 Eosinophils # (Auto) 0.1 TH/MM3 Basophils # (Auto) 0.0 TH/MM3 CBC Comment DIFF FINAL Differential Comment Prothrombin Time 11.1 SEC Prothromb Time International Ratio 1.1 RATIO Activated Partial Thromboplast Time 31.2 SEC Blood Urea Nitrogen 17 MG/DL Creatinine 1.02 MG/DL Random Glucose 83 MG/DL Calcium Level 9.3 MG/DL Sodium Level 140 MEQ/L Potassium Level 4.0 MEQ/L Chloride Level 108 MEQ/L Carbon Dioxide Level 21.1 MEQ/L Anion Gap 11 MEQ/L Estimat Glomerular Filtration Rate 86 ML/MIN MDM Medical Decision Making Medical Screen Exam Complete: Yes Emergency Medical Condition: Yes Medical Record Reviewed: Yes Interpretation(s) Vital Signs Date Time Temp Pulse Resp B/P (MAP) Pulse Ox O2 Delivery O2 Flow Rate FiO2 03/06/18 11:10 100 03/06/18 10:06 98.7 115 16 145/78 (100) 97 Differential Diagnosis Concussion, intracranial hemorrhage Narrative Course During the course of the patients emergency department visit, the patients history, examination, and differential diagnosis were reviewed with the patient. The patient was placed on a monitoring and evaluation advisor with oximetry and frequent blood pressure monitoring. The patient had an IV access obtained and blood work sent for analysis. The patient was initially provided IV fluids The patients laboratory studies were reviewed and remarkable for Laboratory Tests Test 03/06/18 10:40 White Blood Count 13.5 TH/MM3 (4.0-11.0) Red Blood Count 5.96 MIL/MM3 (4.50-5.90) Hemoglobin 17.2 GM/DL (13.0-17.0) Hematocrit 50.8 % (39.0-51.0) Mean Corpuscular Volume 85.2 FL (80.0-100.0) Mean Corpuscular Hemoglobin 28.8 PG (27.0-34.0) Mean Corpuscular Hemoglobin Concent 33.8 % (32.0-36.0) Red Cell Distribution Width 14.3 % (11.6-17.2) Platelet Count 229 TH/MM3 (150-450) Mean Platelet Volume 8.5 FL (7.0-11.0) Neutrophils (%) (Auto) 60.2 % (16.0-70.0) Lymphocytes (%) (Auto) 28.0 % (9.0-44.0) Monocytes (%) (Auto) 10.5 % (0.0-8.0) Eosinophils (%) (Auto) 1.1 % (0.0-4.0) Basophils (%) (Auto) 0.2 % (0.0-2.0) Neutrophils # (Auto) 8.1 TH/MM3 (1.8-7.7) Lymphocytes # (Auto) 3.8 TH/MM3 (1.0-4.8) Monocytes # (Auto) 1.4 TH/MM3 (0-0.9) Eosinophils # (Auto) 0.1 TH/MM3 (0-0.4) Basophils # (Auto) 0.0 TH/MM3 (0-0.2) CBC Comment DIFF FINAL Differential Comment Prothrombin Time 11.1 SEC (9.8-11.6) Prothromb Time International Ratio 1.1 RATIO Activated Partial Thromboplast Time 31.2 SEC (24.3-30.1) Blood Urea Nitrogen 17 MG/DL (7-18) Creatinine 1.02 MG/DL (0.60-1.30) Random Glucose 83 MG/DL (74-106) Calcium Level 9.3 MG/DL (8.5-10.1) Sodium Level 140 MEQ/L (136-145) Potassium Level 4.0 MEQ/L (3.5-5.1) Chloride Level 108 MEQ/L (98-107) Carbon Dioxide Level 21.1 MEQ/L (21.0-32.0) Anion Gap 11 MEQ/L (5-15) Estimat Glomerular Filtration Rate 86 ML/MIN (>89) Radiology studies were reviewed and remarkable for Last Impressions Head CT 03/06/18 1027 Signed Impressions: CONCLUSION: 1. No acute intracranial abnormalities. No significant change from February 15. Patient reevaluated, I did review all results of labs and studies with him in detail, patient with most likely concussive symptoms. Patient does have an appointment with neurologist on Tuesday, he will return to the emergency room as needed. Patient at this time is safe to be discharged to home with outpatient follow-up as symptoms have been ongoing for the past month, he suffers no emergencies at this time. Diagnosis Primary Impression: Concussion Qualified Codes: S06.0X9D - Concussion with loss of consciousness of unspecified duration, subsequent encounter Patient Instructions: General Instructions Additional Instructions: Please provide patient with a copy of their lab work and studies at discharge* * Please follow up with your primary care doctor in 2-3 days Return to the ER if symptoms worsen or progress Return to the ER as needed Please follow-up with neurologist as scheduled Disposition: 01 DISCHARGE HOME Condition: Stable Radha Traylor DO Mar 06, 2018 11:53
[2018-03-06] MEDS ORDERED: SODIUM CHLOR 0.9% 1000 ML INJ 1,000 ML IV ONE (12:00)
--- NOTE | 2018-03-06 12:32 | RADRPT ---
EXAM DATE: 03/06/2018 12:29 PM EDT AGE/SEX: 32 years / Male INDICATIONS: Fall, headache, dizziness. CLINICAL DATA: This is the patient's initial encounter. Patient reports that signs and symptoms have been present for 1 month and indicates a pain score of 3/10. MEDICAL/SURGICAL HISTORY: . Seizure. . Kidney surgery. RADIATION DOSE: 56.35 CTDI (mGy) [place] [facility] [place]. . TECHNIQUE: CT of the head without contrast. Using automated exposure control and adjustment of the mA and/or kV according to patient size, radiation dose was kept as low as reasonably achievable to ob tain optimal diagnostic quality images. DICOM format image data is available electronically for revi ew and comparison. FINDINGS: Cerebrum: The ventricles are normal for age. No evidence of midline shift, mass lesion, hemorrhage or acute infarction. No extraaxial fluid collections are seen. Posterior Fossa: The cerebellum and brainstem are intact. The 4th ventricle is midline. The cerebe llopontine angle is unremarkable. Extracranial: The visualized portion of the orbits is intact. Skull: The calvaria is intact. No evidence of skull fracture. CONCLUSION: 1. No acute intracranial abnormalities. No significant change from February 15. Electronically signed by: Reg Phan MD 03/06/2018 12:31 PM EDT
[2018-03-06] MEDS ORDERED: KETOROLAC TROMETHAMINE 30 MG/ML (IVP) VIAL IV PUSH ONE (13:15)
== END 2018-03-06 13:33 | disposition home or self-care (01) ==
LOC: NEPD 09:57
DX: S06.0X9D Concussion with loss of consciousness of unspecified duration, subsequent encounter (principal); W10.9XXD Fall (on) (from) unspecified stairs and steps, subsequent encounter; F32.9 Major depressive disorder, single episode, unspecified; F17.200 Nicotine dependence, unspecified, uncomplicated; R41.3 Other amnesia; R51 Headache; R42 Dizziness and giddiness; Z79.899 Other long term (current) drug therapy
CPT/HCPCS: 70450; 80048; 85025; 85610; 85730; 96361; 96374; 99284; J1885; J7030